=== PATIENT | female | born 1965 | race Two or more races ===

== ENCOUNTER 2024-11-18 09:48 | Outpatient (RCR) | payer MEDICARE, MEDICAID, SELFPAY ==
[2024-11-18 10:31] VITALS: BP 129/66; PULSE 93; RESP 18; TEMP 36.5; BMI 23.8
--- NOTE | 2024-11-18 11:07 | PCM.WC.HP ---
History of Present Illness Date of Service: 11/18/24 Chief Complaint: Follow-up right buttocks cheek decubitus ulcer. History of Wound: 59-year-old white female with some mental health issues lives in a senior living developed to a sore on her right buttocks that she is wheelchair-bound from paralysis on the right side. She states it has been going on longer than a month she just told them that it was a month. It is a half healed wound they have been using Silvadene cream doing a good job and then it reopened. Patient has a Roho air mattress she sits on. Which she does not like. Patient is not real cooperative and refused to get on the bed we did it standing and she gets an attitude and she does not like want any needles. She is diabetic and on quite a few meds for psych also. PFSH Allergy/AdvReac Type Severity Reaction Status Date / Time acetaminophen (From [facility]) Allergy Mild Hives Verified 11/18/24 10:36 hydrocodone (From [facility]) Allergy Mild Hives Verified 11/18/24 10:36 ROS Constitutional Constitutional: Reports systems reviewed and no addt'l complaints, except as documented Eyes Eyes: Reports systems reviewed and no addt'l complaints, except as documented ENT HEENT: Reports systems reviewed and no addt'l complaints, except as documented Cardiovascular Cardiovascular: Reports systems reviewed and no addt'l complaints, except as documented Respiratory/Chest Respiratory/Chest: Reports systems reviewed and no addt'l complaints, except as documented Gastrointestinal Gastrointestinal: Reports systems reviewed and no addt'l complaints, except as documented Genitourinary Genitourinary: Reports systems reviewed and no addt'l complaints, except as documented Musculoskeletal Musculoskeletal: Reports systems reviewed and no addt'l complaints, except as documented and other Details: Paralysis on the right side arms and legs Integumentary Integumentary: Reports wounds and other Details: Right buttocks decubitus ulcer less than 1 cm circumferential Neurologic Neurologic: Reports systems reviewed and no addt'l complaints, except as documented Psychiatric Psychiatric: Reports systems reviewed and no addt'l complaints, except as documented Endocrine Endocrinology: Reports systems reviewed and no addt'l complaints, except as documented Hematologic/Lymphatic Hematologic/Lymphatic: Reports systems reviewed and no addt'l complaints, except as documented Allergic/Immunologic Allergic/Immunologic: Reports systems reviewed and no addt'l complaints, except as documented Vital Signs Vital Signs Vital Signs: 11/18/24 10:31 Temperature 97.7 F L Temperature Source Temporal Pulse Rate 93 Respiratory Rate 18 Blood Pressure 129/66 H Blood Pressure Mean 87 Blood Pressure Source Monitor Weight Weight: 130 lb 9.615 oz Body Mass Index (BMI) 23.8 Physical Exam Const oriented x3 General Appearance: cooperative Exam Limitations: no limitations HEENT normocephalic Resp normal respiratory effort Effort and Inspection: able to speak in complete sentences Auscultation: clear to auscultation bilaterally Cardio regular rate and regular rhythm Palpation: normal PMI Rate: regular rate Rhythm: regular rhythm Back/Spine Cervical Spine: cervical ROM normal Thoracic Spine / Upper Back: normal to inspection Lumbar Spine / Lower Back: normal to inspection Pelvis: buttocks abnormal right (Right side decubitus ulcer stage II about the size of a dime) Skin no rashes or lesions noted Neuro oriented x3 Psych Appearance: grossly normal Speech: normal speech Thought Content: normal thought content Judgement: judgement good Debridement Note Debridement Note Wound debrided: Right buttocks decubitus ulcer Laterality: Right Wound Grade/Stage: Stage II Type of Debridement: Excisional debridement Anesthesia Used: 5% Lidocaine Gel Depth: in the subcutaneous layer Percentage of wound debrided: 100 Instrument Used: 5mm curette Tissue Removed: Fibrin Severity: Fat Layer Exposed Amount of bleeding with debridement: Mild Bleeding Controlled with: Compression and gauze Patient tolerated procedure: Patient tolerated procedure well Post-Debridement Measurements and Additional Note: Post-Debridement Measurements/Treatment - Nurse 1 - General Ulcer Assessment Start: 11/18/24 10:22 Freq: Status: Active Protocol: HANG Activity Type Activity Date Activity User E-sign Co-sign Detail Recorded Client Recorded Date Recorded By Document 11/18/24 10:31 DL [id number] 11/18/24 10:34 DL 11/18/24 10:31 - Today's Visit Information Type of service Initial Visit Arrival Mode Wheelchair Transfer Assistance None Patient Identification Verified (Name & Yes ) Patient Requires Transmission-Based No Precautions Height and Weight Height 5 ft 2 in Weight 130 lb 9.615 oz Weight in Pounds 130.6 lbs Weight Measurement Method Estimated by Patient Body Mass Index (BMI) 23.8 BMI Classification Normal BSA - [place] 1.59 Vital Signs Temperature (97.8 F-99.1 F) 97.7 F L Temperature Source Temporal Pulse Rate (60-100) 93 Pulse Location Monitor Respiratory Rate (12-18) 18 Respiratory rate source Observation Blood Pressure (90/60-120/80) 129/66 H Blood Pressure Mean 87 Source Monitor Pain Scale: 0-10 Numeric Is Patient Pain Free? Yes WC - Nurse 1 - General Ulcer Measurement Start: 11/18/24 10:22 Freq: Status: Active Protocol: Activity Type Activity Date Activity User E-sign Co-sign Detail Recorded Client Recorded Date Recorded By Document 11/18/24 10:31 DL [id number] 11/18/24 10:34 DL 11/18/24 10:31 Wound Center Nurse 1 #1 L Buttocks -Current Size (cm) - Length 0.6 -Current Size (cm) - Width 0.6 -Current Size (cm) - Depth 0.1 -Total Square Cm 0.36 -Photo Taken Yes -Exudate Amt Small -Exudate Type Serosanguineous -Wound Margin Distinct, Outline Attached -Granulation Amt None Present (0 %) -Necrosis Amt Small (1-33%) -Necrotic Tissue Type Adherent Slough -Structure Exposed N/A -Texture (Ana María-wound Skin Appearance) Scarring -Moisture (Ana María-wound Skin Appearance) No Abnormality -Color (Ana María-wound Skin Appearance) No Abnormality -Temperature (Ana María-wound Skin No Abnormality Appearance) (Pt Warm) -Tenderness on Palpation (Ana María-wound No Skin Appearance) -Ulcer Cleansing Soap and Water -Foul Odor after Cleansing No WC - Nurse 2 - General Ulcer CM Notes Start: 11/18/24 10:22 Freq: Status: Active Protocol: Activity Type Activity Date Activity User E-sign Co-sign Detail Recorded Client Recorded Date Recorded By Document 11/18/24 10:47 [facility] [id number] 11/18/24 10:49 [facility] 11/18/24 10:47 Wound Center Nurse 2 -Time 10:47 -Correct Patient Yes -Correct Side, Site, Position Yes -Correct Procedure Yes -Procedure Performed Yes -Type of Procedure Debridement -Clinical Debridement Subcutaneous -Tissue Removed Subcutaneous -Post Debridement (cm) - Length 0.4 -Post Debridement (cm) - Width 0.4 -Post Debridement (cm) - Depth 0.1 -Total Square (Post) (cm) 0.16 -Area of Debridement (cm) - Length 0.4 -Area of Debridement (cm) - Width 0.4 -Total Square (Area) (cm) 0.16 -Tunneling No -Undermining/Tunneling No -Circular Undermining No -Wound/Ulcer Outcome Not Healed -Ulcer Cleansing Rinsed/ Irrigated with Saline -Foul Odor after Cleansing No -Bioengineered Tissue No -Bleeding Controlled with Pressure -Treatment Response Procedure Tolerated Well -Debridement - Subq, 1st 20sq cm Yes Pain Scale: 0-10 Numeric Is Patient Pain Free? Yes - Nurse 3 - General Ulcer D/C NN Start: 11/18/24 10:22 Freq: Status: Active Protocol: Activity Type Activity Date Activity User E-sign Co-sign Detail Recorded Client Recorded Date Recorded By Document 11/18/24 10:49 [facility] [id number] 11/18/24 10:50 [facility] 11/18/24 10:49 Wound Care Center Nurse 3 #1 L Buttocks -Ulcer Cleansing Rinsed/ Irrigated with Saline -Foul Odor after Cleansing No -Primary Dressing Applied Aquacel Extra, Silicone Border Foam 4x4 -Aquacel Extra 1 -Silicone Border Foam 4x4 1 Treatment Response Procedure Tolerated Well Pain Scale: 0-10 Numeric Is Patient Pain Free? Yes - Visit Discharge Discharge Condition Stable Ambulatory Status Wheelchair Transportation Private Auto Acc[facility]panied by [facility] Assessment/Plan Assessment/Plan (1) Decubitus ulcer of right buttock, stage 2: CODE(S): L89.312 - Pressure ulcer of right buttock, stage 2 PLAN: Wash the right buttocks with antibacterial soap and water apply Aquacel extra moistened with foam dressing over top every day Follow-up in 1 week (2) Hyperglycemia due to type 2 diabetes mellitus: CODE(S): E11.65 - Type 2 diabetes mellitus with hyperglycemia QUALIFIERS: Diabetes mellitus detention insulin use: without detention use Qualified Code(s): E11.65 - Type 2 diabetes mellitus with hyperglycemia PLAN: Continue control of her blood sugars and keep good control with medication and checking (3) 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
--- NOTE | 2024-11-18 13:50 | WC ---
PHOTO 11/18/24 LEFT BUTTOCKS
== END 2024-11-20 23:59 | disposition home or self-care (01) ==
LOC: WC 09:48
PROVIDERS: PCP Internal Medicine Infectious Disease; Referring Provider Internal Medicine Infectious Disease; Visit Provider Nurse Practitioner
DX: L89.312 Pressure ulcer of right buttock, stage 2 (principal); I69.961 Other paralytic syndrome following unspecified cerebrovascular disease affecting right dominant side; E11.65 Type 2 diabetes mellitus with hyperglycemia
CPT/HCPCS: 11042; 99203; G0463

== ENCOUNTER 2024-12-16 10:30 | Outpatient (RCR) | payer MEDICARE, MEDICAID, SELFPAY ==
[2024-11-21 02:45] VITALS: BP 129/66; PULSE 93; RESP 18; TEMP 36.5; BMI 23.8
[2024-11-25 10:52] VITALS: BP 135/83; PULSE 95; RESP 18; TEMP 35.9; BMI 23.8
--- NOTE | 2024-11-25 11:39 | PN.PCM_ITS ---
History of Present Illness Date of Service: 11/25/24 Chief Complaint: Follow-up right buttocks cheek decubitus ulcer. History of Wound: 59-year-old white female with some mental health issues lives in a [facility] developed to a sore on her right buttocks that she is wheelchair-bound from paralysis on the right side. She states it has been going on longer than a month she just told them that it was a month. It is a half healed wound they have been using Silvadene cream doing a good job and then it reopened. Patient has a Roho air mattress she sits on. Which she does not like. Patient is not real cooperative and refused to get on the bed we did it standing and she gets an attitude and she does not like want any needles. She is diabetic and on quite a few meds for psych also. Progress of Wound: Right buttocks decubitus ulcer is bigger and has more slough on the right buttocks cheek. We are going to changed and go to Lizbeth and see if that will help clean up the wound base. Skin is supple around the area some erythema on the perimeter we will continue to monitor and follow her up. Subjective Subjective Patient was cooperative Objective Data Objective Data Slough in the center of her wound she is a into 2 wounds now and it is bigger. We will try switching product to Lizbeth from [employer]. Vital Signs: Vital Signs Temp Pulse Resp BP 96.7 F L 95 18 135/83 H 11/25/24 10:52 11/25/24 10:52 11/25/24 10:52 11/25/24 10:52 Weight: 130 lb 9.615 oz Body Mass Index (BMI) 23.8 Physical Exam Const oriented x3 General Appearance: cooperative Exam Limitations: no limitations HEENT normocephalic Resp normal respiratory effort Effort and Inspection: able to speak in complete sentences Auscultation: clear to auscultation bilaterally Cardio regular rate and regular rhythm Palpation: normal PMI Rate: regular rate Rhythm: regular rhythm Back/Spine Cervical Spine: cervical ROM normal Thoracic Spine / Upper Back: normal to inspection Lumbar Spine / Lower Back: normal to inspection Pelvis: buttocks abnormal right (Right side decubitus ulcer stage II about the size of a dime) Skin no rashes or lesions noted Neuro oriented x3 Psych Appearance: grossly normal Speech: normal speech Thought Content: normal thought content Judgement: judgement good Debridement Note Debridement Note Wound debrided: Right buttocks decubitus ulcer Laterality: Right Wound Grade/Stage: Stage II Type of Debridement: Excisional debridement Anesthesia Used: 5% Lidocaine Gel Depth: in the subcutaneous layer Percentage of wound debrided: 100 Instrument Used: 3mm curette Tissue Removed: Fibrin and slough Severity: Fat Layer Exposed Amount of bleeding with debridement: Mild Bleeding Controlled with: Compression and gauze Patient tolerated procedure: Patient tolerated procedure well Post-Debridement Measurements and Additional Note: Post-Debridement Measurements/Treatment - Nurse 1 - General Ulcer Assessment Start: 11/25/24 10:52 Freq: Status: Active Protocol: HANG Activity Type Activity Date Activity User E-sign Co-sign Detail Recorded Client Recorded Date Recorded By Document 11/25/24 10:52 COLE [id number] 11/25/24 10:58 COLE 11/25/24 10:52 WC - Today's Visit Information Type of service Follow-up Visit (Physician/E [employer] ) Arrival Mode Ambulatory Transfer Assistance None Patient Identification Verified (Name & Yes ) Patient Requires Transmission-Based No Precautions Height and Weight Body Mass Index (BMI) 23.8 BMI Classification Normal Vital Signs Temperature (97.8 F-99.1 F) 96.7 F L Temperature Source Temporal Pulse Rate (60-100) 95 Pulse Location Monitor Respiratory Rate (12-18) 18 Respiratory rate source Observation Blood Pressure (90/60-120/80) 135/83 H Blood Pressure Mean (mm Hg) 100 Source Monitor Position Semi-Fowlers Blood Pressure Location Left Arm History Since Last Visit- (Skip if this is Patient's initial visit) Have you changed medications since your No last visit? Any new allergies or adverse reactions No Had a fall/change in ADL's that may No increase risk of falls Signs or symptoms of abuse and/or No neglect since last visit Have you been in the hospital since your No last visit? Has dressing in place as prescribed Yes Has compression in place as prescribed N/A Has offloadiing in place as prescribed Yes Experienced any changes in pain level or No management Pain Scale: 0-10 Numeric Is Patient Pain Free? Yes CARLOS ALBERTO Cosby Nurse 1 - General Ulcer Measurement Start: 11/25/24 10:52 Freq: Status: Active Protocol: Activity Type Activity Date Activity User E-sign Co-sign Detail Recorded Client Recorded Date Recorded By Document 11/25/24 10:52 RB [id number] 11/25/24 10:58 RB 11/25/24 10:52 Wound Center Nurse 1 #1 R Buttocks -Combined with other wound No -Current Size (cm) - Length 0.7 -Current Size (cm) - Width 0.7 -Current Size (cm) - Depth 0.1 -Total Square Cm 0.49 -Photo Taken Yes -Tunneling No -Undermining/Tunneling No -Circular Undermining No -Exudate Amt Medium -Exudate Type Serosanguineous -Wound Margin Distinct, Outline Attached -Granulation Amt Medium (34-66%) -Granulation Quality Hundred -Slough/Fibrin Yes -Necrosis Amt Medium (34-66%) -Necrotic Tissue Type Adherent Slough -Structure Exposed N/A -Texture (Ana María-wound Skin Appearance) Assessed -Moisture (Ana María-wound Skin Appearance) Assessed -Color (Ana María-wound Skin Appearance) Assessed -Temperature (Ana María-wound Skin No Abnormality Appearance) (Pt Warm) -Tenderness on Palpation (Ana María-wound No Skin Appearance) -Ulcer Cleansing Rinsed/ Irrigated with Saline -Foul Odor after Cleansing No -Anesthetic Used 5% Lidocaine Gel WC - Nurse 2 - General Ulcer CM Notes Start: 11/25/24 10:52 Freq: Status: Active Protocol: Activity Type Activity Date Activity User E-sign Co-sign Detail Recorded Client Recorded Date Recorded By Document 11/25/24 11:03 [facility] [id number] 11/25/24 11:12 [facility] 11/25/24 11:03 Wound Center Nurse 2 -Time 11:03 -Correct Patient Yes -Correct Side, Site, Position Yes -Correct Procedure Yes -Procedure Performed Yes -Type of Procedure Debridement -Clinical Debridement Subcutaneous -Tissue Removed Subcutaneous -Post Debridement (cm) - Length 1.7 -Post Debridement (cm) - Width 0.8 -Post Debridement (cm) - Depth 0.1 -Total Square (Post) (cm) 1.36 -Area of Debridement (cm) - Length 1.7 -Area of Debridement (cm) - Width 0.8 -Total Square (Area) (cm) 1.36 -Tunneling No -Undermining/Tunneling No -Circular Undermining No -Wound/Ulcer Outcome Not Healed -Ulcer Cleansing Rinsed/ Irrigated with Saline -Foul Odor after Cleansing No -Bioengineered Tissue No -Bleeding Controlled with Pressure -Treatment Response Procedure Tolerated Well -Debridement - Subq, 1st 20sq cm Yes Pain Scale: 0-10 Numeric Is Patient Pain Free? Yes - Nurse 3 - General Ulcer D/C NN Start: 11/25/24 10:52 Freq: Status: Active Protocol: Activity Type Activity Date Activity User E-sign Co-sign Detail Recorded Client Recorded Date Recorded By Document 11/25/24 11:12 [facility] [id number] 11/25/24 11:13 [facility] 11/25/24 11:12 Wound Care Center Nurse 3 #1 R Buttocks -Ulcer Cleansing Rinsed/ Irrigated with Saline -Foul Odor after Cleansing No -Primary Dressing Applied Promogran Lizbeth Matter, Silicone Border Foam 4x4 -Promogran Lizbeth Matter 1 -Silicone Border Foam 4x4 1 -Silicone Border Foam 6x6 1 Treatment Response Procedure Tolerated Well Pain Scale: 0-10 Numeric Is Patient Pain Free? Yes - Visit Discharge Discharge Condition Stable Ambulatory Status Wheelchair Transportation [facility] discharge [facility] Assessment/Plan Assessment/Plan (1) Decubitus ulcer of right buttock, stage 2: CODE(S): L89.312 - Pressure ulcer of right buttock, stage 2 PLAN: Wash the right buttocks with antibacterial soap and water apply Lizbeth moistened with foam dressing over top every day Follow-up in 2 week (2) Hyperglycemia due to type 2 diabetes mellitus: CODE(S): E11.65 - Type 2 diabetes mellitus with hyperglycemia QUALIFIERS: Diabetes mellitus rodent exterminator insulin use: without rodent exterminator use Qualified Code(s): E11.65 - Type 2 diabetes mellitus with hyperglycemia PLAN: Continue control of her blood sugars and keep good control with medication and checking (3) 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
[2024-12-16 10:46] VITALS: BP 138/92; PULSE 108; RESP 18; TEMP 36.6; BMI 23.8
--- NOTE | 2024-12-16 11:53 | PN.PCM_ITS ---
History of Present Illness Date of Service: 12/16/24 Chief Complaint: Follow-up right buttocks cheek decubitus ulcer. History of Wound: 59-year-old white female with some mental health issues lives in a [facility] developed to a sore on her right buttocks that she is wheelchair-bound from paralysis on the right side. She states it has been going on longer than a month she just told them that it was a month. It is a half healed wound they have been using Silvadene cream doing a good job and then it reopened. Patient has a Roho air mattress she sits on. Which she does not like. Patient is not real cooperative and refused to get on the bed we did it standing and she gets an attitude and she does not like want any needles. She is diabetic and on quite a few meds for psych also. Progress of Wound: Last visit for patient was to due to her mental illness she is noncompliant. But we had changed her dressing because she has she worsened with the first treatment plan and with the second treatment plan we are hoping that maybe that would heal her. 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 Vital Signs: Vital Signs Temp Pulse Resp BP O2 Del Method 97.8 F 108 H 18 138/92 H Room Air 12/16/24 10:46 12/16/24 10:46 12/16/24 10:46 12/16/24 10:46 12/16/24 10:46 Oxygen Delivery Method Room Air Weight: 130 lb 9.615 oz Body Mass Index (BMI) 23.8 Physical Exam Const oriented x3 General Appearance: cooperative Exam Limitations: no limitations HEENT normocephalic Resp normal respiratory effort Effort and Inspection: able to speak in complete sentences Auscultation: clear to auscultation bilaterally Cardio regular rate and regular rhythm Palpation: normal PMI Rate: regular rate Rhythm: regular rhythm Back/Spine Cervical Spine: cervical ROM normal Thoracic Spine / Upper Back: normal to inspection Lumbar Spine / Lower Back: normal to inspection Pelvis: buttocks abnormal right (Right side decubitus ulcer stage II about the size of a dime) Skin no rashes or lesions noted Neuro oriented x3 Psych Appearance: grossly normal Speech: normal speech Thought Content: normal thought content Judgement: judgement good Debridement Note Debridement Note No debridement was completed: No debridement was completed today Post-Debridement Measurements and Additional Note: Post-Debridement Measurements/Treatment - Nurse 1 - General Ulcer Assessment Start: 11/25/24 10:52 Freq: Status: Active Protocol: CARLOS [email or web address] Activity Type Activity Date Activity User E-sign Co-sign Detail Recorded Client Recorded Date Recorded By Document 11/25/24 10:52 RB [id number] 11/25/24 10:58 RB Document 12/16/24 10:46 MT [id number] 12/16/24 10:51 MT 11/25/24 12/16/24 10:52 10:46 - Today's Visit Information Type of service Follow-up Visit Follow-up Visit (Physician/PERSONAL FINANCIAL REPRESENTATIVE (Physician/PERSONAL FINANCIAL REPRESENTATIVE ) ) Arrival Mode Ambulatory Wheelchair Transfer Assistance None Accompanied by nurse aid Patient Identification Verified (Name & Yes Yes ) Patient Requires Transmission-Based No Precautions Safety Precautions Fall Prevention Blood Sugar Stated by Patient Height and Weight Body Mass Index (BMI) 23.8 23.8 BMI Classification Normal Normal Vital Signs Temperature (97.8 F-99.1 F) 96.7 F L 97.8 F Temperature Source Temporal Temporal Pulse Rate (60-100) 95 108 H Pulse Location Monitor Monitor Respiratory Rate (12-18) 18 18 Respiratory rate source Observation Observation Oxygen Delivery Method Room Air Blood Pressure (90/60-120/80) 135/83 H 138/92 H Blood Pressure Mean (mm Hg) 100 107 Source Monitor Monitor Position Semi-Fowlers Sitting Blood Pressure Location Left Arm Left Arm History Since Last Visit- (Skip if this is Patient's initial visit) Have you changed medications since your No last visit? Any new allergies or adverse reactions No Had a fall/change in ADL's that may No increase risk of falls Signs or symptoms of abuse and/or No neglect since last visit Have you been in the hospital since your No last visit? Has dressing in place as prescribed Yes Yes Has compression in place as prescribed N/A Yes Has offloadiing in place as prescribed Yes Yes Experienced any changes in pain level or No Yes management Left Footwear Regular Shoe Right Footwear Regular Shoe Pain Scale: 0-10 Numeric Is Patient Pain Free? Yes Yes [facility] Nurse 1 - General Ulcer Measurement Start: 11/25/24 10:52 Freq: Status: Active Protocol: Activity Type Activity Date Activity User E-sign Co-sign Detail Recorded Client Recorded Date Recorded By Document 11/25/24 10:52 RB [id number] 11/25/24 10:58 RB Document 12/16/24 10:46 OH [id number] 12/16/24 10:51 OH 11/25/24 12/16/24 10:52 10:46 Wound Center Nurse 1 #1 R Buttocks -Combined with other wound No -Current Size (cm) - Length 0.7 0.1 -Current Size (cm) - Width 0.7 0.1 -Current Size (cm) - Depth 0.1 0.1 -Total Square Cm 0.49 0.01 -Photo Taken Yes No -Epithelialization Large 67-100% -Tunneling No No -Undermining/Tunneling No No -Circular Undermining No No -Exudate Amt Medium None Present -Exudate Type Serosanguineous -Wound Margin Distinct, Flat & Intact Outline Attached -Granulation Amt Medium (34-66%) Large (67-100%) -Granulation Quality [place] Pale,[place] -Slough/Fibrin Yes No -Necrosis Amt Medium (34-66%) -Necrotic Tissue Type Adherent Slough -Structure Exposed N/A -Texture (Ana María-wound Skin Appearance) Assessed Assessed -Moisture (Ana María-wound Skin Appearance) Assessed Assessed -Color (Ana María-wound Skin Appearance) Assessed Assessed -Temperature (Ana María-wound Skin No Abnormality No Abnormality Appearance) (Pt Warm) (Pt Warm) -Tenderness on Palpation (Ana María-wound No No Skin Appearance) -Ulcer Cleansing Rinsed/ Soap and Water Irrigated with Saline -Foul Odor after Cleansing No No -Anesthetic Used 5% Lidocaine 5% Lidocaine Gel Gel Lower Limb Edema Present NA WC - Nurse 2 - General Ulcer CM Notes Start: 11/25/24 10:52 Freq: Status: Active Protocol: Activity Type Activity Date Activity User E-sign Co-sign Detail Recorded Client Recorded Date Recorded By Document 11/25/24 11:03 BMF [id number] 11/25/24 11:12 BM Document 12/16/24 10:57 [facility] [id number] 12/16/24 10:59 [facility] 11/25/24 12/16/24 11:03 10:57 Wound Center Nurse 2 #1 R Buttocks -Time 11:03 10:57 -Correct Patient Yes -Correct Side, Site, Position Yes -Correct Procedure Yes -Procedure Performed Yes No -Type of Procedure Debridement -Clinical Debridement Subcutaneous -Tissue Removed Subcutaneous -Post Debridement (cm) - Length 1.7 0 -Post Debridement (cm) - Width 0.8 0 -Post Debridement (cm) - Depth 0.1 0 -Total Square (Post) (cm) 1.36 0 -Area of Debridement (cm) - Length 1.7 0 -Area of Debridement (cm) - Width 0.8 0 -Total Square (Area) (cm) 1.36 0 -Tunneling No -Undermining/Tunneling No -Circular Undermining No -Wound/Ulcer Outcome Not Healed Healed- Epithelialized -Ulcer Cleansing Rinsed/ Irrigated with Saline -Foul Odor after Cleansing No -Bioengineered Tissue No -Bleeding Controlled with Pressure Pressure -Treatment Response Procedure Tolerated Well -Debridement - Subq, 1st 20sq cm Yes Pain Scale: 0-10 Numeric Is Patient Pain Free? Yes Yes - Nurse 3 - General Ulcer D/C NN Start: 11/25/24 10:52 Freq: Status: Active Protocol: Activity Type Activity Date Activity User E-sign Co-sign Detail Recorded Client Recorded Date Recorded By Document 11/25/24 11:12 [facility] [id number] 11/25/24 11:13 [facility] Document 12/16/24 11:00 [facility] [id number] 12/16/24 11:00 [facility] 11/25/24 12/16/24 11:12 11:00 Wound Care Center Nurse 3 #1 R Buttocks -Ulcer Cleansing Rinsed/ Irrigated with Saline -Foul Odor after Cleansing No -Primary Dressing Applied Promogran Lizbeth Matter, Silicone Border Foam 4x4 -Promogran Lizbeth Matter 1 -Silicone Border Foam 4x4 1 -Silicone Border Foam 6x6 1 Treatment Response Procedure Tolerated Well Pain Scale: 0-10 Numeric Is Patient Pain Free? 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 Other ch[facility] Assessment/Plan Assessment/Plan (1) Decubitus ulcer of right buttock, stage 2: CODE(S): L89.312 - Pressure ulcer of right buttock, stage 2 PLAN: Patient is healed patient will be discharged from the wound center and she can follow-up as needed (2) Hyperglycemia due to type 2 diabetes mellitus: CODE(S): E11.65 - Type 2 diabetes mellitus with hyperglycemia QUALIFIERS: Diabetes mellitus fci insulin use: without 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
== END 2024-12-18 11:05 | disposition home or self-care (01) ==
LOC: WC 10:30
PROVIDERS: PCP Internal Medicine Infectious Disease; Referring Provider Internal Medicine Infectious Disease; Visit Provider Nurse Practitioner
DX: L89.312 Pressure ulcer of right buttock, stage 2 (principal); I69.961 Other paralytic syndrome following unspecified cerebrovascular disease affecting right dominant side; E11.65 Type 2 diabetes mellitus with hyperglycemia; F99 Mental disorder, not otherwise specified; Z91.148 Patient's other noncompliance with medication regimen for other reason
CPT/HCPCS: 11042; 99212; G0463

== ENCOUNTER 2025-04-02 11:50 | Emergency (ER) | payer MEDICARE, MEDICAID, SELFPAY ==
[2025-04-02 11:51] VITALS: BP 123/84; PULSE 88; RESP 16; TEMP 36.5; O2SAT 98
[2025-04-02 11:53] VITALS: BMI 22.6
--- NOTE | 2025-04-02 12:14 | ED.RN ---
PT FROM [facility]. PCP PLACED HER ON MACROBID FOR UTI. PT C/O ABD PAIN AND WAS TAKEN TO [facility] AND THEY DID CT AND UA AND ALL WAS NEGATIVE PER STAFF FROM [facility]
[2025-04-02 13:26] VITALS: BP 142/81; PULSE 83; RESP 16; TEMP 36.5; O2SAT 94
[2025-04-02 13:34] LABS: Mucous, Urine 0 SEEN /hpf (<or=2+)
[2025-04-02 13:36] LABS: Glucose, Dipstick 1000 mg/dl (Normal); Ketone-Dipstick Negative (Negative); Leukocyte Esterase-Dipstick 25 /ul (Negative); Nitrite-Dipstick Negative (Negative); Occult Blood-Urine 25 /ul (Negative); Protein-Dipstick 30 mg/dl (Negative); Urine Bilirubin Dipstick Negative (Negative); Urine Urobilinogen Normal (Normal)
[2025-04-02 13:37] LABS: Color, Urine Yellow (Yellow); Urine Clarity Clear (Clear)
--- NOTE | 2025-04-02 13:45 | RAD_ITS ---
PROCEDURE: ABDOMEN SINGLE VIEW (PORTABLE); PELVIS 1 OR 2 VIEWS 04/02/2025 REASON FOR EXAM: PAIN TECHNIQUE: AP pelvis and two-view supine abdomen. Combined dictation. COMPARISON: None. RAD/Pelvis 1 or 2 Views IMPRESSION: Significant degenerative changes of the lower lumbar spine are noted, with less er degenerative changes elsewhere in the visualized spine. Sacroiliac joints appear symmetric and within the normal range for age. Minimal asymmetric right hip joint degenerative changes, without apparent joint narrowing. The bowel-gas pattern is unremarkable. No mass or mass effect is seen. No fracture site is evident. Reading Location: [address]
--- NOTE | 2025-04-02 13:45 | RAD_ITS ---
PROCEDURE: ABDOMEN SINGLE VIEW (PORTABLE); PELVIS 1 OR 2 VIEWS 04/02/2025 REASON FOR EXAM: PAIN TECHNIQUE: AP pelvis and two-view supine abdomen. Combined dictation. COMPARISON: None. RAD/Abdomen Single View (Portable) IMPRESSION: Significant degenerative changes of the lower lumbar spine are noted, with less er degenerative changes elsewhere in the visualized spine. Sacroiliac joints appear symmetric and within the normal range for age. Minimal asymmetric right hip joint degenerative changes, without apparent joint narrowing. The bowel-gas pattern is unremarkable. No mass or mass effect is seen. No fracture site is evident. Reading Location: [address]
[2025-04-02 13:57] LABS: Bacteria 1+ /hpf (None Seen); Red Blood Cells-Urine 0-5 SEEN /hpf (0-5); Squamous Epithelial Cells - UA 0-5 SEEN /hpf (5-10); White Blood Cells 0-5 SEEN /hpf (0-5)
--- NOTE | 2025-04-02 13:59 | ED.RN ---
PT VOIDED 40 MINS BEFORE BLADDER SCAN. PT SAID SHE NEEDED TO GET UP TO THE BATHROOM, SCANNED BEFORE AND SHOWED 389. WILL SCAN AFTER VOID ALSO FOR RESIDUAL AMOUNT
[2025-04-02 14:00] VITALS: BP 132/75; PULSE 72; RESP 14; TEMP 36.9; O2SAT 97
[2025-04-02 15:00] VITALS: BP 141/79; PULSE 71; RESP 16; TEMP 36.9; O2SAT 95
--- NOTE | 2025-04-02 15:04 | CT_ITS ---
PROCEDURE: ABDOMEN/PELVIS W IV CONT ONLY 04/02/2025 REASON FOR EXAM: LOWER ABD PAIN TECHNIQUE: ABDOMEN/PELVIS W IV CONT ONLY. Coronal and Sagittal reconstruction series were provided. ORAL CONTRAST TYPE: None. CONTRAST: Isovue 370 VOLUME: 100 mL One or more dose reduction techniques were used (e.g., Automated exposure control, adjustment of the mA and/or kV according to patient size, use of iterative reconstruction technique. RADIATION DOSE SUMMARY: CTDlvol: 30 mGy DLP: 900 mGycm COMPARISON: Same day abdominal radiographs. FINDINGS: Visualization is slightly limited by motion artifact. Lung bases: Bibasilar atelectasis/scarring. Liver: Normal in size without focal hepatic mass. The major portal veins are patent. No biliary ductal dilation. Gallbladder: No radiopaque stones within the gallbladder. Spleen: Normal in size. Pancreas: Atrophic. Calcifications within the pancreatic head and neck, likely sequela from prior pancreatitis. Adrenals: Left adrenal gland hyperplasia. No discrete mass. Kidneys: Congenital malrotation of the right kidney. Bilateral nephrolithiasis. No hydronephrosis. Bladder: Distended and unremarkable. Reproductive Organs: Normal uterine size and contour. Ovaries are unremarkable. Bowel: The bowel loops are nondilated. No ascites or pneumoperitoneum. Normal appendix. Lymph nodes: No suspicious lymphadenopathy. Vasculature: Moderate to severe mixed plaque of the aortoiliac vessels. Bones: Mild thoracolumbar spondylosis. CT/Abdomen/Pelvis W IV Cont ONLY IMPRESSION: No acute abdominopelvic findings. Reading Location: [id number]
[2025-04-02 15:28] LABS: Absolute Neutrophil Count 6.4 X10^3/uL (2.0-7.7); Basophil# 0.08 X10^3/uL; Basophil% 0.7 % (0-1); Eosinophil# 1.19 X10^3/uL; Eosinophils% 10.7 % (0-5); Hematocrit 41.8 % (37-47); Hemoglobin 13.2 g/dL (12.0-15.0); Lymphocyte % 23.5 % (19-41); Mean Corp Hgb Conc 31.6 g/dL (32-36); Mean Corpuscular Hgb 27.4 pg (27.0-32.0); Mean Corpuscular Volume 86.7 fL (81-99); Mean Platelet Vol. 9.7 fl (6.2-12.0); Monocyte# 0.69 X10^3/uL; Monocyte% 6.2 % (0-10); NRBC Flagged by Analyzer 0 % (0-5); Neutrophil # 6.43 X10^3/uL (2.7-7.7); Neutrophil % 58.2 % (47-70); Platelet Count 391 K/mm3 (150-450); RBC Distribution Width CV 15.6 % (11.6-14.6); RBC Distribution Width SD 49.3 fl (35.1-43.9); Red Blood Count 4.82 M/mm3 (4.2-5.4); White Blood Count 11.1 K/mm3 (4.4-11.0)
[2025-04-02 16:08] LABS: ALB/GLOB Ratio 1.4 RATIO (0.9-2.4); AST(SGOT) 16 U/L (<=31); Alanine Aminotransfer ALT/SGPT 16 U/L (<=34); Albumin, Serum 4.5 g/dL (3.4-4.8); Alkaline Phosphatase 157 U/L (35-104); Anion Gap 13 (5-15); BUN 16 mg/dL (4-19); BUN/Creat Ratio 20.5 RATIO (10-20); Carbon Dioxide 25.5 mmol/L (21.0-32.0); Chloride 103 mmol/L (98-108); Creatinine, Serum 0.76 mg/dL (0.70-1.20); EST Glomerular Filtration Rate 90 (>60); Estimated Creatinine Clearance 61.48 ml/min (50-250); Globulin 3.3 g/dL (2.2-4.2); Glucose 81 mg/dL (70-99); Lipase 12 U/L (13-75); Potassium 4.2 mmol/L (3.3-5.1); Protein, Total 7.7 g/dL (5.9-8.4); Sodium Level 142 mmol/L (133-145); Total Bilirubin 0.23 mg/dL (0.00-1.30)
--- NOTE | 2025-04-02 16:35 | ED.VIS.GI ---
HPI <Dr. Shivani Youngblood, DO - Last Filed: 04/05/25 13:20> HPI - GI History of Present Illness Chief Complaint: Abd Pain Informant: patient and other (Caregiver) Narrative Narrative: Patient is a 59-year-old female with history of type 2 diabetes, GERD, borderline personality disorder, cerebral palsy, epilepsy, hypothyroidism and recent urinary tract infection (completed course of Macrobid) returning to the emergency room for recurrence abdominal pain. Patient is having pain in her left hip and her right groin area. Adamantly for couple weeks of initially she was diagnosed with UTI treated with a course of Macrobid. She has had some associated diarrhea with the Macrobid. She had an episode of vomiting yesterday and went to [facility] emergency room yesterday afternoon for evaluation of her symptoms. She had a workup including labs and CT. Urine culture was sent but workup was largely negative. Did CT did show some constipation and patient was instructed to take MiraLAX. Patient has continued pain cream presented to our emergency room today for this. Does not have any significant pain at this time. Denies any new trauma or injury. No fever or chills reported. No black or blood in the stool. Currently does not feel nauseous. States she had a bowel movement this morning. Did have a fall about 1 week ago. Currently not having any urinary symptoms either [facility] <Dr. Shivani Youngblood, DO - Last Filed: 04/05/25 13:20> [facility] Home Medications ?Medication ?Instructions ?Recorded ?Last Taken ?Type Lactobacillus acidophilus 10 mg PO DAILY 04/02/25 04/02/25 History (Acidophilus capsule) desvenlafaxine succinate 25 mg 25 mg PO DAILY 04/02/25 04/02/25 History tablet,extended release 24 hr desvenlafaxine succinate 50 mg 50 mg PO DAILY 04/02/25 04/02/25 History tablet,extended release 24 hr docusate sodium 100 mg capsule 100 mg PO BID 04/02/25 04/02/25 History empagliflozin 25 mg tablet 25 mg PO DAILY 04/02/25 04/02/25 History (Jardiance) ferrous sulfate 325 mg (65 mg 325 mg PO DAILY 04/02/25 04/02/25 History iron) tablet (FeroSul) glimepiride 4 mg tablet 4 mg PO BID 04/02/25 04/02/25 History lacosamide 200 mg tablet (Vimpat) 200 mg PO DAILY 04/02/25 04/02/25 History lamotrigine 200 mg tablet 200 mg PO BID 04/02/25 04/02/25 History levothyroxine 88 mcg tablet 88 mcg PO DAILY 04/02/25 04/02/25 History magnesium oxide 400 mg (241.3 mg 400 mg PO DAILY 04/02/25 04/02/25 History magnesium) tablet meloxicam 7.5 mg tablet 7.5 mg PO DAILY 04/02/25 Unknown History metformin 1,000 mg tablet 1,000 mg PO BID 04/02/25 04/02/25 History midodrine 10 mg tablet 10 mg PO TID 04/02/25 04/02/25 History nystatin 100,000 unit/gram topical topical 04/02/25 Unknown History powder ([facility]) omeprazole 20 mg capsule,delayed 20 mg PO DAILY 04/02/25 04/02/25 History release sennosides 8.6 mg-docusate sodium 1 tab PO DAILY 04/02/25 04/02/25 History 50 mg tablet (Senna Plus) Allergy/AdvReac Type Severity Reaction Status Date / Time hydrocodone (From [place]) Allergy Mild Hives Verified 04/02/25 12:11 Social History Smoking Status: Never smoker ROS <Dr. Shivani Youngblood DO - Last Filed: 04/05/25 13:20> ROS ED Constitutional Constitutional ED: Denies chills or fever(s) Respiratory/Chest Respiratory/Chest: Denies cough Gastrointestinal Gastrointestinal: Reports abdominal pain, nausea and other Details: Recent diarrhea but none currently. Recent vomiting after choking on a pill but none today Genitourinary Genitourinary ED: Reports urinary frequency and other Details: Chronic urinary frequency?no acute change ; Denies dysuria or hematuria Musculoskeletal Musculoskeletal: Reports other Details: Left hip pain ; Denies arthralgias Integumentary Denies rash Neurologic Neurologic: Denies paresthesias or weakness Hematologic/Lymphatic Hematologic/Lymphatic: Denies easy bleeding or easy bruising EXAM <Dr. Shivani Youngblood DO - Last Filed: 04/05/25 13:20> Physical Exam Const Vital Signs: 04/02/25 11:51 04/02/25 13:26 04/02/25 14:00 Temperature 97.7 F L 97.7 F L 98.5 F Temperature Source Oral Temporal Oral Pulse Rate 88 83 72 Respiratory Rate 16 16 14 Blood Pressure 123/84 H 142/81 H 132/75 H Blood Pressure Mean 97 101 94 Pulse Ox 98 94 97 Oxygen Delivery Method Room Air Room Air Room Air 04/02/25 15:00 Temperature 98.4 F Temperature Source Oral Pulse Rate 71 Respiratory Rate 16 Blood Pressure 141/79 H Blood Pressure Mean 99 Pulse Ox 95 Oxygen Delivery Method Room Air Positive well nourished and well developed General Appearance ED: well developed and NAD; Negative for pallor HEENT Reports moist mucous membranes Neck supple Resp normal respiratory effort and clear to auscultation bilaterally Cardio regular rate and regular rhythm GI non-distended GI Narrative: Mild reproducible suprapubic tenderness on exam. No peritoneal signs. Auscultation: normoactive bowel sounds Palpation: soft and tender; Negative for guarding or rigid Back/Spine no CVA tenderness Back/Spine Narrative: Left paraspinal lumbar tenderness. It is below the level of the CVA Extremity General Extremety ED: Negative for edema General Extremity: Negative for edema Neuro Neuro Narrative: Patient at her baseline Sensorium / Orientation: alert, oriented to person and oriented to place Motor Exam: Negative for general weakness Psych mental status grossly normal and thought process normal Skin no wounds General Skin Exam: Negative for jaundice or pallor <Dr. Bogdan Palm, DO - Last Filed: 04/02/25 17:29> Physical Exam Const Vital Signs: 04/02/25 11:51 04/02/25 13:26 04/02/25 14:00 Temperature 97.7 F L 97.7 F L 98.5 F Temperature Source Oral Temporal Oral Pulse Rate 88 83 72 Respiratory Rate 16 16 14 Blood Pressure 123/84 H 142/81 H 132/75 H Blood Pressure Mean 97 101 94 Pulse Ox 98 94 97 Oxygen Delivery Method Room Air Room Air Room Air 04/02/25 15:00 Temperature 98.4 F Temperature Source Oral Pulse Rate 71 Respiratory Rate 16 Blood Pressure 141/79 H Blood Pressure Mean 99 Pulse Ox 95 Oxygen Delivery Method Room Air MDM <Dr. Shivani Youngblood, DO - Last Filed: 04/05/25 13:20> MDM MDM Narrative Medical decision making narrative: Patient evaluated for ongoing lower abdominal pain. Tenderness is most in her suprapubic region. She has white blood cell count but stable from yesterday. Prior records from yesterday at pulmonary and ER reviewed by myself. Workup is most consistent with constipation. On exam patient does not have any obvious signs of acute trauma. Will obtain right hip x-ray and abdominal x-ray initially as well as urinalysis. Urinalysis shows contamination but not highly consistent with urinary tract infection. Will send for culture given frequent history of urinary tract infection and suprapubic discomfort on exam. Her imaging does not show any acute process with mild arthritic changes. Will perform CT with IV contrast at this time to ensure there is no further developing process given her continued pain. Anticipated this is negative patient we discharged home treatment for constipation. Patient signed out to oncoming physician pending CT result. History & Record Review Additional record(s) reviewed:: Prior outpatient record (ER visit from yesterday. Patient had workup including CT of the abdomen and pelvis without contrast which showed a large stool burden/constipation and stranding in the subcutaneous tissue posterior to the right hip. Lab work showed mild leukocytosis with a white blood cell count of 12.2 but otherw) Lab Data Attestation: I reviewed the patient's lab results. Labs: Laboratory Results - last 24 hr 04/02/25 04/02/25 11:50 15:18 WBC 11.1 H RBC 4.82 Hgb 13.2 Hct 41.8 MCV 86.7 MCH 27.4 MCHC 31.6 L RDW Std Deviation 49.3 H RDW Coeff of [place] 15.6 H Plt Count 391 MPV 9.7 Immature Gran % (Auto) 0.700 Neut % (Auto) 58.2 Lymph % (Auto) 23.5 [place] % (Auto) 6.2 Eos % (Auto) 10.7 H Baso % (Auto) 0.7 Absolute Neuts (auto) 6.4 Absolute Lymphs (auto) 2.60 Nucleated RBC % 0 Sodium 142 Potassium 4.2 Chloride 103 Carbon Dioxide 25.5 Anion Gap 13 BUN 16 Creatinine 0.76 Estim Creat Clear Calc 61.48 Est GFR (MDRD) Non-Af 90 BUN/Creatinine Ratio 20.5 H Glucose 81 Calcium 11.0 Total Bilirubin 0.23 AST 16 ALT 16 Alkaline Phosphatase 157 H Total Protein 7.7 Albumin 4.5 Globulin 3.3 Albumin/Globulin Ratio 1.4 Lipase 12 L Urine Color Yellow Urine Clarity Clear Urine pH 6.0 Ur Specific [place] 1.010 Urine Protein 30 H Urine Glucose (UA) 1000 H Urine Ketones Negative Urine Occult Blood 25 H Urine Nitrite Negative Urine Bilirubin Negative Urine Urobilinogen Normal Ur Leukocyte Esterase 25 H Urine RBC 0-5 SEEN Urine WBC 0-5 SEEN Ur Squamous Epith Cells 0-5 SEEN Urine Bacteria 1+ Urine Mucus 0 SEEN Radiography Diagnostic Testing: Clinical Impression(s) from Imaging Studies KUB X-Ray 04/02/25 13:45 IMPRESSION: Significant degenerative changes of the lower lumbar spine are noted, with lesser degenerative changes elsewhere in the visualized spine. Sacroiliac joints appear symmetric and within the normal range for age. Minimal asymmetric right hip joint degenerative changes, without apparent joint narrowing. The bowel-gas pattern is unremarkable. No mass or mass effect is seen. No fracture site is evident. Reading Location: [id number] Pelvis X-Ray 04/02/25 13:45 IMPRESSION: Significant degenerative changes of the lower lumbar spine are noted, with lesser degenerative changes elsewhere in the visualized spine. Sacroiliac joints appear symmetric and within the normal range for age. Minimal asymmetric right hip joint degenerative changes, without apparent joint narrowing. The bowel-gas pattern is unremarkable. No mass or mass effect is seen. No fracture site is evident. Reading Location: [id number] Abdomen/Pelvis CT 04/02/25 15:04 IMPRESSION: No acute abdominopelvic findings. Reading Location: [id number] <Dr. Bogdan Palm, DO - Last Filed: 04/02/25 17:29> [facility] Narrative Medical decision making narrative: Patient evaluated for ongoing lower abdominal pain. Tenderness is most in her suprapubic region. She has white blood cell count but stable from yesterday. Prior records from yesterday at pulmonary and ER reviewed by myself. Workup is most consistent with constipation. On exam patient does not have any obvious signs of acute trauma. Will obtain right hip x-ray and abdominal x-ray initially as well as urinalysis. Urinalysis shows contamination but not highly consistent with urinary tract infection. Will send for culture given frequent history of urinary tract infection and suprapubic discomfort on exam. Her imaging does not show any acute process with mild arthritic changes. Will perform CT with IV contrast at this time to ensure there is no further developing process given her continued pain. Anticipated this is negative patient we discharged home treatment for constipation. Patient signed out to oncoming physician pending CT result. 1725: Le. Patient signed out to me pending results of CT scan. Results noted distended bladder no other acute findings. Bladder scan 400 cc of urine postvoid residual down to 165 clinic is feeling better on reevaluation. Reassured on findings. Urine culture pending. Discussed will be contacted if any positive results of concern. Otherwise outpatient follow-up with her doctor. All questions were answered. Lab Data Labs: Laboratory Results - last 24 hr 04/02/25 04/02/25 11:50 15:18 WBC 11.1 H RBC 4.82 Hgb 13.2 Hct 41.8 MCV 86.7 MCH 27.4 MCHC 31.6 L RDW Std Deviation 49.3 H RDW Coeff of [place] 15.6 H Plt Count 391 MPV 9.7 Immature Gran % (Auto) 0.700 Neut % (Auto) 58.2 Lymph % (Auto) 23.5 [place] % (Auto) 6.2 Eos % (Auto) 10.7 H Baso % (Auto) 0.7 Absolute Neuts (auto) 6.4 Absolute Lymphs (auto) 2.60 Nucleated RBC % 0 Sodium 142 Potassium 4.2 Chloride 103 Carbon Dioxide 25.5 Anion Gap 13 BUN 16 Creatinine 0.76 Estim Creat Clear Calc 61.48 Est GFR (MDRD) Non-Af 90 BUN/Creatinine Ratio 20.5 H Glucose 81 Calcium 11.0 Total Bilirubin 0.23 AST 16 ALT 16 Alkaline Phosphatase 157 H Total Protein 7.7 Albumin 4.5 Globulin 3.3 Albumin/Globulin Ratio 1.4 Lipase 12 L Urine Color Yellow Urine Clarity Clear Urine pH 6.0 Ur Specific [place] 1.010 Urine Protein 30 H Urine Glucose (UA) 1000 H Urine Ketones Negative Urine Occult Blood 25 H Urine Nitrite Negative Urine Bilirubin Negative Urine Urobilinogen Normal Ur Leukocyte Esterase 25 H Urine RBC 0-5 SEEN Urine WBC 0-5 SEEN Ur Squamous Epith Cells 0-5 SEEN Urine Bacteria 1+ Urine Mucus 0 SEEN Radiography Diagnostic Testing: Clinical Impression(s) from Imaging Studies KUB X-Ray 04/02/25 13:45 IMPRESSION: Significant degenerative changes of the lower lumbar spine are noted, with lesser degenerative changes elsewhere in the visualized spine. Sacroiliac joints appear symmetric and within the normal range for age. Minimal asymmetric right hip joint degenerative changes, without apparent joint narrowing. The bowel-gas pattern is unremarkable. No mass or mass effect is seen. No fracture site is evident. Reading Location: [id number] Pelvis X-Ray 04/02/25 13:45 IMPRESSION: Significant degenerative changes of the lower lumbar spine are noted, with lesser degenerative changes elsewhere in the visualized spine. Sacroiliac joints appear symmetric and within the normal range for age. Minimal asymmetric right hip joint degenerative changes, without apparent joint narrowing. The bowel-gas pattern is unremarkable. No mass or mass effect is seen. No fracture site is evident. Reading Location: [id number] Abdomen/Pelvis CT 04/02/25 15:04 IMPRESSION: No acute abdominopelvic findings. Reading Location: [facility] Discharge Plan Triage Chief Complaint: Abd Pain ED Provider: Shivani Youngblood Dx/Rx/DC Orders Clinical Impression: Abdominal pain Instructions: Abdominal Pain Prescriptions: No Action Acidophilus Capsule 10 mg PO DAILY ferrous sulfate [FeroSul] 325 mg (65 mg iron) tablet 325 mg PO DAILY glimepiride 4 mg tablet 4 mg PO BID docusate sodium 100 mg capsule 100 mg PO BID desvenlafaxine succinate 50 mg tablet extended release 24 hr 50 mg PO DAILY desvenlafaxine succinate 25 mg tablet extended release 24 hr 25 mg PO DAILY Jardiance 25 mg tablet 25 mg PO DAILY lamotrigine 200 mg tablet 200 mg PO BID sennosides-docusate sodium [Senna Plus] 8.6-50 mg tablet 1 tab PO DAILY meloxicam 7.5 mg tablet 7.5 mg PO DAILY levothyroxine 88 mcg tablet 88 mcg PO DAILY magnesium oxide 400 mg (241.3 mg magnesium) tablet 400 mg PO DAILY metformin 1,000 mg tablet 1,000 mg PO BID omeprazole 20 mg capsule,delayed release(DR/EC) 20 mg PO DAILY nystatin [Nyamyc] 100,000 unit/gram powder topical midodrine 10 mg tablet 10 mg PO TID lacosamide [Vimpat] 200 mg tablet 200 mg PO DAILY Primary Care Provider: Alexis Camarena Referrals: Alexis Camarena MD [Primary Care Provider] - 1 Week Activity Restrictions/Additional Instructions: You had a KUB that was negative. Pelvic x-ray negative. You had a CAT scan with IV and oral contrast negative. Labs are all stable. Urine culture sent. Will contact you with any positive results or require treatment. Continue oral fluids for hydration at this time. Follow-up with your doctor. Print Language: Mohawk Disposition Disposition: Home, Self Care Discharge Date/Time: 04/02/25 17:38
[2025-04-02 17:37] VITALS: BP 124/78; PULSE 71; RESP 16; TEMP 36.7; O2SAT 94
== END 2025-04-02 17:38 | disposition home or self-care (01) ==
PROVIDERS: Emergency Provider Emergency Medicine; PCP Internal Medicine Infectious Disease; Visit Provider Emergency Medicine
DX: R10.9 Unspecified abdominal pain (principal); G80.9 Cerebral palsy, unspecified; G40.909 Epilepsy, unspecified, not intractable, without status epilepticus; E11.9 Type 2 diabetes mellitus without complications; R19.7 Diarrhea, unspecified; M25.552 Pain in left hip; E03.9 Hypothyroidism, unspecified; K21.9 Gastro-esophageal reflux disease without esophagitis; R35.0 Frequency of micturition; Z87.440 Personal history of urinary (tract) infections
CPT/HCPCS: 72170; 74018; 74177; 80053; 81001; 83690; 85025; 99283; Q9967; A4216